=== PATIENT | male | born 1950 | race Caucasian/White ===

== ENCOUNTER → 2019-11-17 | Outpatient (CLI) | payer BC, MEDICARE ==
[~2019-11-17] MED LIST: ACIDOPHILUS PO; ANCEF 2 GM/22 GM/SY1 IV; ASPIRIN 81M81 MG/TA2 PO; ASPIRIN E.C. 8181 MG PO; CEPHALEXIN500 M1 PO; DESIPRAMINE HC150 MG PO; DESYREL 100MG100 MG PO; DESYREL DIVIDO150 M1 PO; FISH OIL1000 MG PO; L-LYSINE500 MG PO; LEVAQUIN 5500 MG/TA1 PO; LITHIUM CARBON450 MG PO; LITHOBID 3300 MG/TAB PO; MASON NATURAL1200 MG PO; MEDROL 4MG DOSPA4 MG PO; MIRALAX PA17 GM/Dose PO; MULTIPLE VITAMI1 CAP PO; NORCO 325 MG-51 TAB PO; NORCO 325 MG-7.1 TAB PO; NORPRAMIN150 MG PO; ONE-A-DAY ESSE1 EACH PO; PRAVACHOL 40MG40 MG PO; PROTONIX 40MG T40 MG PO; ROXICODONE 55 MG/TAB PO; TRICOR145 MG PO; TYLENOL 325MG325 MG PO; VITAMIN C500 MG PO; VOLTAREN GEL 1%1 TU TP
== END ==
LOC: BHSO 10:39
DX: F33.1 Major depressive disorder, recurrent, moderate (principal)

== ENCOUNTER → 2019-12-15 | Outpatient (CLI) | payer BC, MEDICARE | LOC: BHSO 10:21 | DX: F33.41 Major depressive disorder, recurrent, in partial remission (principal) | CPT/HCPCS: G0463 ==

== ENCOUNTER 2020-05-11 07:41 | Day surgery (SDC) | payer MEDICARE, BC ==
[~2020-05-11] VITALS: Ht 175.3 cm; Wt 81.3 kg
[2020-05-11] VITALS (10 sets, daily range): BP systolic 103–131; BP diastolic 73–91; PULSE 86–97; TEMP 99.2
[2020-05-11] MEDS ORDERED: NORVASC 5MG5 MG/TAB PO ×2 (08:29)
[2020-05-11 08:48] LABS: HEMATOCRIT 45.4 % (42.0-52.0); HEMOGLOBIN 15.3 g/dl (13.5-18.0); MEAN CELL VOLUME 92 fl (80.0-100.0); MEAN CORPUSCULAR HEMOGLOBIN 31 pg (27.0-31.0); MEAN CORPUSCULAR HGB CONC 34 g/dl (33.0-37.0); MEAN PLATELET VOLUME 8.7 fl (7.4-10.4); PLATELET COUNT 268 K/mm3 (130-400); RED BLOOD COUNT 4.92 M/mm3 (4.20-5.60); REDCELL DISTRIBUTION WIDTH-CV 12.7 % (11.5-14.5)
[2020-05-11 08:57] LABS: CALCIUM 9.2 mg/dL (8.4-10.2); CREATININE, serum 1.05 (0.66-1.25); POTASSIUM 4.1 mmol/L (3.4-5.0)
[2020-05-11 08:58] LABS: PROTHROMBIN TIME 11.3 SECONDS (9.7-12.8)
[2020-05-11 09:01] LABS: PARTIAL THROMBOPLASTIN TIME 33.5 SECONDS (26.0-37.0)
--- NOTE | 2020-05-11 10:12 | NUR ---
SEE MERGE DOCUMENTATION FOR MEDICATION ADMINISTRATION TIMES AND INTRA/POST PROCEDURE SEDATION ASSESSMENTS. RIGHT RADIAL ACCESS PLANNED; RIGHT HAND BARBEAU TEST POSITIVE.
--- NOTE | 2020-05-11 11:05 | NUR ---
Pt back from sleep lab technologist. He is [id number], pwd, resp reg and unlabored. tr band to rt wrist, cms intact distal. pt aware of poc. lunch ordered.
--- NOTE | 2020-05-11 14:00 | NUR ---
Pt is ready for discharge. TR band has been deflated and puncture site covered with bandaid, and dressed with light compression dressing of 2x2 and coban. cms intact distal. Pt has been ambulatory around his room and to br with steady gait. we have reviewed dc and fu instructions, pt and deny questions. iv dc'd with cath intact, dressing applied. pt escorted to exit via wheelchair.
== END 2020-05-11 14:15 | disposition home or self-care (01) ==
LOC: COL.CAR 07:41
PROVIDERS: Internal Medicine Cardiovascular Disease
DX: I25.110 Atherosclerotic heart disease of native coronary artery with unstable angina pectoris (principal); I10 Essential (primary) hypertension; E78.2 Mixed hyperlipidemia; Z88.8 Allergy status to other drugs, medicaments and biological substances; Z79.82 Long term (current) use of aspirin; Z87.891 Personal history of nicotine dependence; Z80.3 Family history of malignant neoplasm of breast; Z85.46 Personal history of malignant neoplasm of prostate
CPT/HCPCS: J1644; J2250; J3010; Q9967

== ENCOUNTER → 2024-05-16 | Outpatient (CLI) | payer MEDICARE, BC ==
[~2024-05-16] MED LIST changes: +NORVASC 5MG5 MG/TAB PO
== END ==
LOC: COL.RAD 08:41
DX: K57.90 Diverticulosis of intestine, part unspecified, without perforation or abscess without bleeding (principal)